=== PATIENT | male | born 1985 | race Caucasian/White ===

== ENCOUNTER 2025-01-14 15:55 | Inpatient (IN) | payer MEDICAID ==
[~2025-01-14] VITALS: Ht 160 cm; Wt 65.9 kg
[2025-01-14 16:57] LABS: COVID AG,FIA SOURCE NPH
[2025-01-14] MEDS: LORazepam 2 MG/ML VIAL IM ONE (17:18)
[2025-01-14 17:52] LABS: SARS-COV2 (COVID) ANTIGEN,FIA Negative (Negative)
[2025-01-14 18:02] LABS: PLATELET COUNT (AUTO) 284 K/uL (150-450); RED BLOOD CELL COUNT(AUTO) 4.69 MIL/uL (4.50-5.90); RED CELL DISTRIBUTION WIDTH 12.7 % (11.5-14.5); WHITE BLOOD COUNT (AUTO) 18.3 K/uL (4.5-11.0)
[2025-01-14 18:08] LABS: CALCIUM, TOTAL 9.0 mg/dL (8.8-10.5); CREATININE 0.95 mg/dL (0.60-1.30); GLOMERULAR FILTR. RATE CALC > 60 mL/min (>60); GLUCOSE,RANDOM 191 mg/dL (70-110); SODIUM SERUM 138 mmol/L (136-145); UREA NITROGEN, BLOOD 30 mg/dL (7-18)
[2025-01-14] MEDS ORDERED: ZOLPIDEM TARTRATE 10 MG TABLET PO PRN (19:45)
[2025-01-14] MEDS: POTASSIUM CHLORIDE 20 MEQ ER TABLET PO ONE (23:55)
[2025-01-15 00:02] VITALS: O2SAT 98
[2025-01-15] MEDS ORDERED: INFLUENZA VIRUS VACCINE TVS (6MO+) 2025-26/PF 45 MCG/0.5 ML SYRINGE IM. ONE (02:00)
[2025-01-15] MEDS ORDERED: DOCUSATE SODIUM 100 MG CAPSULE PO PRN (07:30)
[2025-01-15] MEDS ORDERED: ACETAMINOPHEN 325 MG TABLET PO PRN (07:30)
[2025-01-15] MEDS ORDERED: BENZOCAINE/MENTHOL [CEPACOL] LOZENGE PO PRN (07:30)
[2025-01-15] MEDS ORDERED: LOPERAMIDE HCL 2 MG CAPSULE PO PRN (07:30)
[2025-01-15] MEDS ORDERED: BACITRACIN 28 GM OINTMENT TP PRN (07:30)
[2025-01-15] MEDS ORDERED: IBUPROFEN 600 MG TABLET PO PRN (07:30)
[2025-01-15] MEDS ORDERED: OMEPRAZOLE 20 MG CAPSULE PO PRN (07:30)
[2025-01-15] MEDS ORDERED: NICOTINE POLACRILEX 4 MG LOZENGE PO PRN (07:30)
[2025-01-15] MEDS ORDERED: MAGNESIUM HYDROXIDE SUSPENSION 30 ML UDCUP PO PRN (07:30)
[2025-01-15] MEDS ORDERED: ALBUTEROL SULFATE HFA 90 MCG/PUFF 8 GM INHALER IH PRN (07:30)
[2025-01-15] MEDS ORDERED: PETROLATUM,WHITE 28 GM JELLY TP PRN (07:30)
[2025-01-15] MEDS ORDERED: ONDANSETRON 4 MG TABLET PO PRN (07:30)
[2025-01-15] MEDS ORDERED: MAG HYDROX/ALUMINUM HYD/SIMETH ES 30 ML SUSPENSION UDCUP PO PRN (07:30)
[2025-01-16] MEDS: POTASSIUM CHLORIDE 20 MEQ ER TABLET PO ONE (07:29)
[2025-01-16 09:12] LABS: PLATELET COUNT (AUTO) 256 K/uL (150-450); RED BLOOD CELL COUNT(AUTO) 4.60 MIL/uL (4.50-5.90); RED CELL DISTRIBUTION WIDTH 12.8 % (11.5-14.5); WHITE BLOOD COUNT (AUTO) 7.9 K/uL (4.5-11.0)
[2025-01-16 09:40] LABS: ASPARTATE AMINOTRANSFERASE 42 U/L (15-37); CALCIUM, TOTAL 8.7 mg/dL (8.8-10.5); CHOL/HDL RATIO 2.5 (4.2-7.3); CREATININE 0.85 mg/dL (0.60-1.30); GLOMERULAR FILTR. RATE CALC > 60 mL/min (>60); GLUCOSE,RANDOM 61 mg/dL (70-110); LDL CHOL (CALC.) 96 mg/dL (0-130); PHOSPHORUS 2.8 mg/dL (2.5-4.9); SODIUM SERUM 139 mmol/L (136-145); TOTAL PROTEIN, SERUM 6.7 g/dL (6.4-8.2); UREA NITROGEN, BLOOD 28 mg/dL (7-18)
[2025-01-16 20:12] VITALS: BP 118/73; PULSE 68; RESP 16; TEMP 98.2; O2SAT 100
[2025-01-17 08:03] VITALS: BP 105/60; PULSE 80; RESP 16; TEMP 97.8; O2SAT 100
[2025-01-17 08:22] LABS: PLATELET COUNT (AUTO) 221 K/uL (150-450); RED BLOOD CELL COUNT(AUTO) 4.63 MIL/uL (4.50-5.90); RED CELL DISTRIBUTION WIDTH 13.0 % (11.5-14.5); WHITE BLOOD COUNT (AUTO) 6.1 K/uL (4.5-11.0)
[2025-01-17 08:37] LABS: ASPARTATE AMINOTRANSFERASE 31 U/L (15-37); CALCIUM, TOTAL 8.5 mg/dL (8.8-10.5); CREATININE 0.71 mg/dL (0.60-1.30); GLOMERULAR FILTR. RATE CALC > 60 mL/min (>60); GLUCOSE,RANDOM 99 mg/dL (70-110); SODIUM SERUM 140 mmol/L (136-145); TOTAL PROTEIN, SERUM 6.7 g/dL (6.4-8.2); UREA NITROGEN, BLOOD 17 mg/dL (7-18)
[2025-01-17] MEDS ORDERED: RISP3TAB77 PO (11:25)
== END 2025-01-17 16:39 | disposition home or self-care (01) | DRG 750 ==
LOC: EMS 16:01 → B3A 01-15 00:35
PROVIDERS: ADMIT Psychiatry & Neurology Psychiatry; ATTEND Psychiatry & Neurology Psychiatry
DX: F20.9 Schizophrenia, unspecified (principal); D72.829 Elevated white blood cell count, unspecified; E87.6 Hypokalemia; F41.9 Anxiety disorder, unspecified; G47.00 Insomnia, unspecified; K21.9 Gastro-esophageal reflux disease without esophagitis; K59.00 Constipation, unspecified; F15.10 Other stimulant abuse, uncomplicated; F32.A Depression, unspecified; F10.10 Alcohol abuse, uncomplicated; Z20.822 Contact with and (suspected) exposure to COVID-19; Y90.0 Blood alcohol level of less than 20 mg/100 ml; Z87.891 Personal history of nicotine dependence; Z79.899 Other long term (current) drug therapy
CPT/HCPCS: 70450; 72125; 80048; 80053; 80061; 83036; 83735; 84100; 84443; 85025; 99285; G0480; J1200; J1630; J2060